=== PATIENT | male | born 1970 | race Caucasian/White ===

== ENCOUNTER → 2021-12-20 | Outpatient (CLI) | payer BC ==
[2021-12-20 08:07] LABS: HEMOGLOBIN 14.1 gm/dl (14.0-17.5); RED BLOOD COUNT 4.36 M/UL (4.20-5.50); WHITE BLOOD COUNT 5.4 K/UL (4.5-11.0)
[2021-12-20 08:38] LABS: BUN/CREATININE RATIO 14 (0-10)
[2021-12-22 12:08] LABS: CHOLESTEROL, TOTAL 182 mg/dL (100-199); HDL SIZE 9.2 nm (>=9.2); HDL-C 53 mg/dL (>39); HDL-P (TOTAL) 31.1 umol/L (>=30.5); LARGE HDL-P 6.4 umol/L (>=4.8); LARGE VLDL-P 1.1 nmol/L (<=2.7); LDL SIZE 21.7 nm (>20.5); LDL SIZE 21.7 nm (>=20.8); LDL-C 112 mg/dL (0-99); LDL-P 1013 nmol/L (<1000); LP-IR SCORE <25 (<=45); SMALL LDL-P 191 nmol/L (<=527); TRIGLYCERIDES 91 mg/dL (0-149); VLDL SIZE 43.6 nm (<=46.6)
== END ==
LOC: LAB 07:37
PROVIDERS: Emergency Medicine
DX: Z12.5 Encounter for screening for malignant neoplasm of prostate (principal); J30.89 Other allergic rhinitis; K21.9 Gastro-esophageal reflux disease without esophagitis; I10 Essential (primary) hypertension
CPT/HCPCS: 36415; 80053; 80061; 83704; 84153; 84550; 85025

== ENCOUNTER → 2022-03-11 | Outpatient (CLI) | payer BC ==
[2022-03-11 08:49] LABS: RED BLOOD COUNT 4.4 M/UL (4.20-5.50); WHITE BLOOD COUNT 5.2 K/UL (4.5-11.0)
[2022-03-11 09:10] LABS: BUN/CREATININE RATIO 13 (0-10)
== END ==
LOC: LAB 08:22
PROVIDERS: Emergency Medicine
DX: D64.89 Other specified anemias (principal)
CPT/HCPCS: 36415; 80053; 83036; 85025